=== PATIENT | female | born 1990 | race Caucasian/White ===

== ENCOUNTER 2022-08-18 10:03 | Emergency (ER) | payer OTHER, SELFPAY ==
[2022-08-18 10:10] VITALS: BP 119/71; PULSE 85; RESP 14; TEMP 37; O2SAT 100
--- NOTE | 2022-08-18 10:13 | ED.WOUNDLAC ---
HPI - Wound/Laceration General Chief Complaint: Wound/Laceration Stated Complaint: Laceration to Left Thigh Source: patient and RN notes reviewed History of Present Illness HPI narrative: 32 yo F presents to urgent care with complaints of a laceration to her left thigh. 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 Pt denies any other complaints. Pt is unknown when her last Tdap occurred. Related Data Allergies Allergy/AdvReac Type Severity Reaction Status Date / Time No Known Drug Allergies Allergy Unknown Verified 05/07/21 15:48 Review of Systems Review of Systems: CONSTITUTIONAL: Denies fever, chills, or sweats. EYES: Denies visual changes, redness, or discharge. ENT: Denies otalgia and sore throat CARDIOVASCULAR: Denies chest pain, palpitations, or edema. RESPIRATORY: Denies cough or dyspnea. GASTROINTESTINAL: Denies abdominal pain, nausea, vomiting, or diarrhea. GENITOURINARY: Denies dysuria or hematuria. SKIN: Laceration MUSCULOSKELETAL: Denies back pain, joint pain, or myalgia. NEUROLOGIC: Denies headache, numbness, or weakness. PMFSH Comments At the time of my signature, I reviewed and agree with the nursing past medical, surgical, social, and family history. There is no relevant family history pertinent to the patient complaint. Exam Narrative: GENERAL: This is a well-nourished, well-developed patient, in no apparent distress. HEAD: normocephalic, atraumatic. EYES: PERRL. Sclera clear/white. Vision is grossly intact. EARS: External ears normal, auditory canals clear and without drainage, TMs normal without perforation. Hearing grossly intact. NOSE: External nose normal with no obvious nasal discharge, nares without redness, no rhinorrhea. THROAT: Mucous membranes moist, posterior pharynx clear. NECK: Neck supple, non-tender without lymphadenopathy, masses or thyromegaly. CARDIOVASCULAR: Regular rate and rhythm without murmurs, gallops, or rubs. RESPIRATORY: Clear to auscultation. Breath sounds equal bilaterally. No wheezes, rales, or rhonchi. GASTROINTESTINAL: Abdomen soft, non-tender, nondistended. Bowel sounds are active. No hepato-splenomegaly, or palpable masses. No guarding. SKIN: 1 cm laceration to left anterior thigh, no active bleeding. NEURO: awake, alert, and oriented to person, place and time. There were no obvious focal neurologic abnormalities. EXTREMITIES: No clubbing, cyanosis, or edema. No joint tenderness, effusion, BACK: Nontender without deformity or crepitance. No flank tenderness. Course Course Level of Care: Express Care Visit Vital Signs Vital signs: Vital Signs Temperature 98.6 F 08/18/22 10:10 Pulse Rate 85 08/18/22 10:10 Respiratory Rate 14 08/18/22 10:10 Blood Pressure 119/71 08/18/22 10:10 Pulse Oximetry 100 08/18/22 10:10 Oxygen Delivery Room Air 08/18/22 10:10 Temperature 98.6 F 08/18/22 10:10 Pulse Rate 85 08/18/22 10:10 Respiratory Rate 14 08/18/22 10:10 Blood Pressure 119/71 08/18/22 10:10 Pulse Oximetry 100 08/18/22 10:10 Oxygen Delivery Room Air 08/18/22 10:10 Reviewed. Procedures Laceration Laceration 1: Date: 08/18/22 Time: 10:20 Site: lower extremity (anterior thigh) Side (If applicable): left Size (cm): 1 Description: clean Depth: simple, single layer Local Anesthetic: lidocaine 1% Amount of anesthesia used (mL): 2 Pre-repair: wound explored and irrigated ====== Skin Level ====== Skin layer closed with: nylon Size (cm): 4-0 Number of sutures: 2 Technique: simple, interrupted ====== Subcutaneous Layer ====== ====== Muscle Layer ====== ====== Tendon Layer ====== Dressing: Pt tolerated the procedure well. Approximately 5 minutes after procedure, pt became sweaty, clammy, and nauseated. Pt was then placed in Trendelenburg and began to feel b
[2022-08-18] MEDS: TETANUS,DIPHTHERIA,AC PERTUSSIS ADULT (0.5 ML) BOOSTRIX IM (10:38)
== END 2022-08-18 10:45 | disposition home or self-care (01) ==
PROVIDERS: Emergency Provider Nurse Practitioner Family
DX: S71.112A Laceration without foreign body, left thigh, initial encounter (principal); W26.0XXA Contact with knife, initial encounter; Y99.0 Civilian activity done for income or pay; Z23 Encounter for immunization
CPT/HCPCS: 12001; 90471; 90715; 99202; G0463

== ENCOUNTER 2022-08-27 15:48 | Emergency (ER) | payer OTHER, SELFPAY ==
[2022-08-27 15:55] VITALS: BP 113/68; PULSE 79; RESP 18; TEMP 36.8; O2SAT 100
--- NOTE | 2022-08-27 16:03 | ED.WOUNDLAC ---
HPI - Wound/Laceration General Chief Complaint: Wound/Laceration Stated Complaint: Suture Removal Time Seen by Provider: 08/27/22 16:03 Source: patient and RN notes reviewed History of Present Illness HPI narrative: Patient is a 32-year-old female who presents to urgent care with requesting removal of sutures. Patient was seen on the at our facility for laceration to the left upper thigh. Patient cut it on a knife at work. Patient states that the wound has not shown any signs or symptoms of infection. No other acute complaints. States 2 sutures were placed. Patient aware of the plan of care. Some parts of this dictation were generated by voice recognition software and may contain typographical and/or grammatical inaccuracies. Related Data Home Medications Medication Instructions Recorded Confirmed No Home Medications 08/27/22 08/27/22 Allergies Allergy/AdvReac Type Severity Reaction Status Date / Time No Known Allergies Allergy Verified 08/27/22 16:04 Review of Systems Review of Systems: CONSTITUTIONAL: Denies fever, chills, or sweats. EYES: Denies visual changes, redness, or discharge. ENT: Denies rhinorrhea, congestion, sore throat, or otalgia. CARDIOVASCULAR: Denies chest pain, palpitations, or edema. RESPIRATORY: Denies cough or dyspnea. GASTROINTESTINAL: Denies abdominal pain, nausea, vomiting, or diarrhea. GENITOURINARY: Denies dysuria or hematuria. SKIN: Reports of a laceration to the left upper thigh MUSCULOSKELETAL: Denies back pain, joint pain, or myalgia. NEUROLOGIC: Denies headache, numbness, or weakness. All other systems reviewed are negative, except as documented in HPI. PMFSH Comments At the time of my signature, I reviewed and agree with the nursing past medical, surgical, social, and family history. There is no relevant family history pertinent to the patient complaint. Exam Narrative: GENERAL: This is a well-nourished, well-developed patient, in no apparent distress. HEAD: normocephalic, atraumatic. EYES: PERRL. Sclera clear/white. Vision is grossly intact. EARS: External ears normal NOSE: External nose normal with no obvious nasal discharge, nares without redness, no rhinorrhea. THROAT: Mucous membranes moist NECK: Neck supple SKIN: Approximated 1 cm sutured laceration to the upper left thigh, 2 sutures noted. Warm, intact with no suspicious lesions or rash, good texture and turgor. NEURO: awake, alert, and oriented to person, place and time. There were no obvious focal neurologic abnormalities. EXTREMITIES: No clubbing, cyanosis, or edema. Course Course Level of Care: Express Care Visit Vital Signs Vital signs: Vital Signs Temperature 98.3 F 08/27/22 15:55 Pulse Rate 79 08/27/22 15:55 Respiratory Rate 18 08/27/22 15:55 Blood Pressure 113/68 08/27/22 15:55 Pulse Oximetry 100 08/27/22 15:55 Oxygen Delivery Room Air 08/27/22 15:55 Temperature 98.3 F 08/27/22 16:04 Pulse Rate 79 08/27/22 16:04 Respiratory Rate 18 08/27/22 16:04 Blood Pressure 113/68 08/27/22 16:04 Pulse Oximetry 100 08/27/22 16:04 Oxygen Delivery Room Air 08/27/22 16:04 Reviewed Procedures Other Procedure Procedure 1: Other Procedure: 1 cm left upper thigh laceration approximated with 2 sutures. Cleansed with alcohol and removed by provider. No complications. Wound approximated. Neosporin and bandage applied. MDM - Wound/Laceration MDM Narrative Medical decision making narrative: Advised patient to keep the wound clean with plain Dial soap and water. Wound is approximated and you should not have any issues with infection. May keep it covered with the use of Neosporin. Follow-up with your PCP within 2-5 days or for worsening symptoms or failure to improve. Differential Diagnosis Differential diagnosis: Likely laceration, abscess, abrasion and avulsion of skin Critical Care Time Critical Care Time Critical Care Time: No Discharge Plan Disc
[2022-08-27 16:04] VITALS: BP 113/68; PULSE 79; RESP 18; TEMP 36.8; O2SAT 100
== END 2022-08-27 16:15 | disposition home or self-care (01) ==
PROVIDERS: Emergency Provider Nurse Practitioner Family
DX: Z48.02 Encounter for removal of sutures (principal)
CPT/HCPCS: 99211; G0463

== ENCOUNTER 2024-12-20 15:56 | Emergency (ER) | payer OTHER, SELFPAY ==
[2024-12-20 16:05] VITALS: BP 142/70; PULSE 78; RESP 18; TEMP 36.7; O2SAT 100
--- NOTE | 2024-12-20 16:05 | ED.SKABFB ---
HPI - Skin/Abscess/Foreign Bdy General Chief complaint: Skin/Abscess/Foreign Body Stated complaint: rash on body Source: patient Mode of arrival: ambulatory Limitations: no limitations History of Present Illness HPI narrative: Patient is 34-year-old female that presents to the clinic with complaints of an itchy rash to her upper extremities x 1 day and a rash and edema to bilateral lower extremities x 2 days. She states that she took Benadryl over the counter, but has not had any relief. Denies history of congestive heart failure or DVTs. She is currently not on control. Denies any new products, shortness of breath, chest pain, diarrhea, vomiting, nausea, or fevers. Related Data Allergies Allergy/AdvReac Type Severity Reaction Status Date / Time No Known Allergies Allergy Verified 12/20/24 16:11 Review of Systems Review of Systems: CONSTITUTIONAL: Denies body aches, fever, chills, or sweats. EYES: Denies visual changes, redness, or discharge. ENT: Denies rhinorrhea, congestion CARDIOVASCULAR: Denies chest pain, palpitations, or edema. RESPIRATORY: Denies cough or dyspnea. GASTROINTESTINAL: Denies abdominal pain, nausea, vomiting, or diarrhea. SKIN: ?Reports an itchy rash to her bilateral lower extremities and upper extremities. MUSCULOSKELETAL: Denies back pain, joint pain, or myalgia. NEUROLOGIC: Denies headache, numbness, tingling, or weakness. All systems reviewed & are unremarkable except as noted in HPI and below PMFSH Comments At time of signature, I have reviewed and agree with nursing past medical, surgical, social and family history unless otherwise noted. Please see nursing chart for further information. There is no relevant family history pertinent to the presenting complaint. Exam Narrative: GENERAL: Well-appearing HEAD: Normocephalic, atraumatic. EYES: ?conjunctivae clear, and EOMI. ENT: Mucous membranes moist. Oropharynx without edema, erythema or lesions. NECK: Supple. No lymphadenopathy CHEST: Clear to auscultation. HEART: Regular rate and rhythm. SKIN: Warm, dry. ?Raised, erythemic papules c/w insect bites to bilateral upper extremities. Erythemic, flat rash to bilateral medial lower extremities with 2+ non-pitting edema; not painful. NEURO: ?Alert and oriented x3.? Course Course Level of Care: Express Care Visit Vital Signs Vital signs: Reviewed MDM - Skin/Abscess/Foreign Bdy MDM Narrative Medical decision making narrative: Discussed physical exam findings. Triamcinolone prescription given for upper extremities. Advised supportive measures and signs/symptoms to go to the ER. Discussed with patient that bilateral lower extremities may be the start of vasculitis or cellulitis. She is aware of the benefits and risks. Patient would not like to go to ER at this time. She agrees that if symptoms are to get worse, she will go to ER immediately. Differential Diagnosis Differential diagnosis: Likely cellulitis, insect bites, contact dermatitis and other (vasculitis to lower extremities. ) Critical Care Time Critical Care Time Critical Care Time: No Discharge Plan Discharge Clinical Impression: Insect bites, Rash Patient Disposition: Home Condition: Stable Instructions: Insect Bite or Sting (ED) Additional Instructions: The most important part of your care is follow up with Primary care provider. If the rash on your lower legs persist or get worse please go to ER immediately. Use triamcinolone cream was prescribed. Take Claritin, Zyrtec, or Susan daily for the next 7 days Avoid hot showers, Take cool showers. Wash the area with gentle soap and water only. Use skin cream as prescribed to reduce itchiness Avoid scratching when possible to prevent worsening of the condition and disruption of the skin that could lead to bacterial infection To relieve itching, place a cool washcloth or some ice over the area that itches, rather than scratching Follow up with primary care provider or seek ER if you have trouble breathing, become hoarse, or start wheezing, develop belly cramps, vomiting or feel dizzy. Patient Language: Maltese Prescriptions: New triamcinolone acetonide 0.1 % cream 1 applic topical BID Qty: 30 0RF Follow-up/Referrals: PHYSICIAN,CATSHOVEL DRIVER [Primary Care Provider] - Stand Alone Forms: Work/School Release IP Time of Disposition: 16:20
== END 2024-12-20 16:23 | disposition home or self-care (01) ==
DX: S40.862A Insect bite (nonvenomous) of left upper arm, initial encounter (principal); S40.861A Insect bite (nonvenomous) of right upper arm, initial encounter; W57.XXXA Bitten or stung by nonvenomous insect and other nonvenomous arthropods, initial encounter; R21 Rash and other nonspecific skin eruption
CPT/HCPCS: 99213; G0463

== ENCOUNTER 2025-06-13 16:15 | Emergency (ER) | payer OTHER, SELFPAY ==
[2025-06-13 16:26] VITALS: BP 109/71; PULSE 75; RESP 16; TEMP 36.6; O2SAT 100
--- NOTE | 2025-06-13 17:28 | ED.SKABFB ---
HPI - Skin/Abscess/Foreign Bdy General Chief complaint: Skin/Abscess/Foreign Body Stated complaint: Rash Time Seen by Provider: 06/13/25 17:15 Source: patient, RN notes reviewed and old records reviewed Mode of arrival: ambulatory Limitations: no limitations History of Present Illness HPI narrative: 34 year old female who presents to [facility] with complaints of rash to lower extremities.1 lesion on the right leg and 5 lesions on left anterior leg which are itchy. Patient has marked areas around lesions with are red flat with no pustule or vesicle formation reports lesios noted 2 days ago. Ptient reports no new skin care products, lotions, foods, medications, or laundry products is unaware of being bit by any insect.Patient reorts no fevers chills or sweats. MD complaint: rash Onset (ago): day(s) (2) Tetanus up to date: yes Location: LLE and RLE Severity: moderate Quality: pruritic Treatments prior to arrival: other (Calamine lotion) Related Data Allergies Allergy/AdvReac Type Severity Reaction Status Date / Time No Known Allergies Allergy Verified 06/13/25 16:30 Review of Systems Review of Systems: CONSTITUTIONAL: Denies fever, chills, or sweats. CARDIOVASCULAR: Denies chest pain, palpitations, or edema. RESPIRATORY: Denies cough or dyspnea. SKIN: Reports lesions on the lower anterior aspects of lower legs for 2 days 1 lesion red flat circular to right leg, and 5 red flat circular to left leg are itchy no induration or fluctuation no vesicle or pustules no drainage. MUSCULOSKELETAL: Denies joint pain or myalgia. NEUROLOGIC: Denies headache, numbness, or weakness. All systems reviewed & are unremarkable except as noted in HPI and below PMFSH Surgical History Surgical History (Updated 06/15/25 @ 21:56 by Danielle Colunga APRN) H/O LEEP History of partial hysterectomy Social History Social History Smoking status: Current every day smoker Tobacco type: e-cigarettes/vaping Alcohol intake: current Alcohol use details: social Substance use type: does not use Living arrangements: with family Gender identity (if verbalized by the patient): Female Comments At time of signature, agree with nursing past medical, surgical, social and family history. There is no relevant family history pertinent to the presenting complaint Exam Narrative: GENERAL: Well-appearing, well-nourished, and in no acute distress.afebrile HEAD: Normocephalic, atraumatic. EYES: PERRLA, conjunctivae clear, and EOMI. ENT: Mucous membranes moist. Oropharynx without edema, erythema or lesions. NECK: Supple. No lymphadenopathy CHEST: Clear to auscultation. No respiratory distress.SAO2 100% on room air HEART: Regular rate and rhythm. SKIN: Warm, dry.?red circular lesions noted to anterior aspect of legs with 1 lesion to righ and 5 noted to right with no induration or fluctuation, no pustules or any vesicles or any drainage from areas patient has marked around areas with no increase in size are itching has been applying Calamine lotion NEURO:? Alert and oriented x3. PSYCH: Normal mood and affect Course Course Level of Care: Express Care Visit Vital Signs Vital signs: Vital Signs Temperature 36.6 C 06/13/25 16:26 Pulse Rate 75 06/13/25 16:26 Respiratory Rate 16 06/13/25 16:26 Blood Pressure 109/71 06/13/25 16:26 Pulse Oximetry 100 06/13/25 16:26 Oxygen Delivery Room Air 06/13/25 16:26 Temperature 36.6 C 06/13/25 16:26 Pulse Rate 75 06/13/25 16:26 Respiratory Rate 16 06/13/25 16:26 Blood Pressure 109/71 06/13/25 16:26 Pulse Oximetry 100 06/13/25 16:26 Oxygen Delivery Room Air 06/13/25 16:26 reviewed MDM MDM Narrative Medical decision making narrative: Patient presents with lesions to the anterior aspect of lower extremities with 1 on right leg and 5 to left leg no pustular formation or any vesicles are red flat and itchy. Reports no new possible allergens or any known insect bites,no drainage noted. Patient prescribed prednisone, triamcinolone ointment, and instructed to take zyrtec and pepcid daily for 10 days. Patient is appropriate for outpatient care and follow up. reasons to seek care in ED reviewed with patient with understanding voiced. Differential Diagnosis Differential Diagnosis: Differential diagnostic considerations for skin/abscess/foreign body issues include abscess of skin or subcutaneous tissue, viral exanthem, dermatophytosis, urticaria, herpes zoster, allergic reaction to drug, cellulitis, eczema, insect bites, impetigo, contact dermatitis, vasculitis. Critical Care Time Critical Care Time Critical Care Time: No Discharge Plan Discharge Clinical Impression: Contact dermatitis Qualifiers: Contact dermatitis type: unspecified Contact dermatitis trigger: unspecified trigger Qualified Code(s): L25.9 - Unspecified contact dermatitis, unspecified cause Patient Disposition: Home Condition: Stable Instructions: Contact Dermatitis (ED) Additional Instructions: wash rash areas with liquid Dial soap and apply triamcinolone ointment twice daily watch for any infection- increased-redness, swelling, drainage Tylenol or ibuprofen for any fever pain follow up with PCP in 7-10 days for a wound check recheck if develop fever, chills, increasing symptom Go to the ER if your symptoms become worse of if ANY new symptoms develop prednisone take as prescribed complete all doses If your symptoms persist, change or worsen significantly before you can contact your personal physician then please, without delay, go to the emergency department for further evaluation. Follow-up with PCP in 7-10 days or sooner if needed Zyrtec 10 mg daily for 10 days Pepcid 20 mg daily for 10 days Patient Language: Bruneian Prescriptions: New prednisone 20 mg tablet 20 mg PO BID 5 Days Qty: 10 0RF triamcinolone acetonide 0.1 % ointment 1 applic topical BID Qty: 80 0RF Rx Instructions: apply to rash twice daily famotidine [Pepcid] 20 mg tablet 20 mg PO DAILY Qty: 10 0RF Follow-up/Referrals: UNKNOWN,DOCTOR [Primary Care Provider] Time of Disposition: 17:40 Quality Mona Coma Scale Eyes: Open Verbal: Oriented and Alert Motor: Follows Commands Abhay Coma Total Score: 15
--- OUTSIDE RECORDS SUMMARY | 2025-06-13 18:04 | XMS_ITS | Clinical Summary ---
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 9 Active HYDROcodone-ac etaminophen (NORCO) 5-325 mg per tabletIndicati ons:Pain Take 1 tablet by mouth every 4 (four) hours as needed for pain. 10 tablet 9 Active naproxen (NAPROSYN) 500 mg tabletIndicati ons:Pleurisy Take 1 tablet (500 mg total) by mouth 2 (two) times a day with meals P.r.n. pain. Collaborating physician Jon Astudillo MD 30 tablet 4 Active traMADoL (ULTRAM) 50 mg tabletIndicati ons:Pleurisy Take 1 tablet (50 mg total) by mouth every 6 (six) hours P.r.n. pain not relieved by naproxen alone. Take with food. Collaborating physician Jon Astudillo MD 20 tablet 4 Active Active Problems Problem Noted Date Diagnosed Date Pleurisy 08/13/2023 Surgical History Surgery Date Site/Laterality Comments HYSTERECTOMY Medical History Medical History Date Comments Cancer (HCC) Social History Tobacco Use Types Packs/Day Years Used Date Smoking Tobacco: Every Day Cigarettes 0.5 20 Smokeless Tobacco: Never Tobacco Cessation:Ready to Q uit: Not Asked; Counseling Given: Not Answered Personal Safety Answer Date Recorded Have you ever been in or are you currently in a harmful physical or emotional relationship or is someone making you feel afraid or unsafe? 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 Gender Identity Not on file Sexual Orientation Not on file Last Filed Vital Signs Vital Sign Reading Time Taken Comments Blood Pressure 118/86 08/13/2023 5:45 PM CASEY SAW OPERATOR Pulse 80 08/13/2023 7:24 PM CASEY SAW OPERATOR Temperature 36.9 C (98.4 F) 08/13/2023 2:44 PM CASEY SAW OPERATOR Respiratory Rate 16 08/13/2023 7:24 PM CASEY SAW OPERATOR Oxygen Saturation 100% 08/13/2023 7:24 PM CASEY SAW OPERATOR Inhaled Oxygen Concentration - - Weight 56.7 kg (125 lb) 08/13/2023 2:44 PM CASEY SAW OPERATOR Height 175.3 cm (5' 9) 08/13/2023 2:44 PM CASEY SAW OPERATOR Body Mass Index 18.46 08/13/2023 2:44 PM CASEY SAW OPERATOR Plan of Treatment Health Maintenance Due Date Last Done Comments Depression Screening 1988 Hepatitis C Screening 1988 DTaP/Tdap/Td Vaccine (1 - Tdap) 1999 Varicella Vaccines (1 of 2 - 13+ 2-dose series) 2001 Hepatitis B Screening 2006 Regular Well Visit/Exam 18-64 2006 Pneumococcal vaccine <65 (1 of 2 - PCV) 2007 HPV Vaccines (1 - 3-dose SCDM series) 2015 Influenza Vaccine (#1) 2025 Insurance [facility] CHOICE PLUS Advance Directives For more information, please contact: [phone] * Full Code (Latest Code Status on File) Date Activated Date Inactivated Comments 07/24/2018 1:28 AM 07/25/2018 6:19 PM Care Teams Button Tufting Machine Operator Relationship Specialty Start Date End Date No, Physician PCP - General 08/13/23
--- OUTSIDE RECORDS SUMMARY | 2025-06-13 18:04 | XMS_ITS | Clinical Summary ---
Author Organization [facility] Address [address] [place] [address] Phone Care Team Providers Care Service Station Helper Name Role Phone Provider, None Primary Care Provider Unavailabl e Allergies No known active allergies Medications famotidine (PEPCID) 20 MG Tablet Take 1 Tab by mouth 2 times daily. 20 Tab 01/16/2018 Active ondansetron (ZOFRAN ODT) 4 MG TABLET DISPERSIBLE Take 1 Tab by mouth every 8 hours as needed for Nausea - 2nd line. 10 Tab 01/16/2018 Active dicyclomine (BENTYL) 20 MG Tablet Take 1 Tab by mouth every 6 hours. 30 Tab 01/16/2018 Active Social History Tobacco Use Types Packs/Day Years Used Date Smoking Tobacco: Every Day Cigarettes Smokeless Tobacco: Never Alcohol Use Standard Drinks/Week Comments No 0 (1 standard drink = 0.6 oz pur e alcohol) Comments No Sex and Gender Information Value Date Recorded Sex Assigned at Not on file Legal Sex Female 9:19 PM CDT Gender Identity Not on file Sexual Orientation Not on file Last Filed Vital Signs Vital Sign Reading Time Taken Comments Blood Pressure 121/59 01/16/2018 4:06 AM CDT Pulse 74 01/16/2018 4:06 AM CDT Temperature 36.6 C (97.9 F) 01/16/2018 4:06 AM CDT Respiratory Rate 14 01/16/2018 4:06 AM CDT Oxygen Saturation 100% 01/16/2018 4:06 AM CDT Inhaled Oxygen Concentration - - Weight 54.4 kg (120 lb) 01/16/2018 4:06 AM CDT Height 175.3 cm (5' 9) 01/16/2018 4:06 AM CDT Body Mass Index 17.72 01/16/2018 4:06 AM CDT Plan of Treatment Not on file Care Teams Service Station Helper Relationship Specialty Start Date End Date Provider, None [place] PCP - General 01/16/18
--- OUTSIDE RECORDS SUMMARY | 2025-06-13 18:04 | XMS_ITS | Clinical Summary ---
Author Organization [facility] Address [address] [place] [address] Care Team Providers Care Microsoft Architect Name Role Phone Unavailable Primary Care Provider Unavailabl e Source Comments [facility],non-owned Affiliates and Associated Physician Practices is amultiple site organization consisting of ambulatory clinics and hospital sitesin [place], [place], [place] and [place]. This disclosure is being madepursuant to the Care Everywhere program and may not contain all information available regarding this patient. Last updated 18.[facility] [employer] Allergies No known active allergies Medications * Be aware that medications may not be up to date on this document. Alwaysverify current medications with the patient. Straughn-3 Fatty Acids (FISH OIL PO) Take 1,000 mg by mouth once daily Active Active Problems Problem Noted Date Diagnosed Date Breast pain 03/09/2019 S/P laparoscopic hysterectomy 05/17/2018 ABRAHAM III (cervical intraepith elial neoplasia grade III) with severe dysplasia 04/08/2018 Overview (06/16/2018): PAP smear and HPV Cotesting at 12 and 24 months. If both negative routine screening for 20 years. Resolved Problems Problem Noted Date Diagnosed Date Resolved Date Pelvic mass 08/17/2018 07/28/2019 S/P LEEP (loop electrosurgic al excision procedure) 04/08/2018 06/15/2018 Endometriosis 04/08/2018 06/15/2018 Chronic pelvic pain in female 04/08/2018 06/15/2018 Dyspareunia in female 04/08/20182017 Surgery follow-up examination 05/07/2017 06/15/2018 Encounters Date Type Department Care Team Description 05/12/2025 Results Follow-Up [facility] PATENT PROSECUTION PARALEGAL [address] [place] [address], [address] [address] Pinky Lubin MD 05/01/2025 2:30 PM COMMERCIAL CARPENTER OBGYN RADIOLOGY [facility] PATENT PROSECUTION PARALEGAL [address] [place] [address], [address] [phone] Pelvic pain 04/28/2025 Results Follow-Up [facility] PATENT PROSECUTION PARALEGAL [address] [place] [address], [address] [address] Genet Peguero 04/24/2025 2:45 PM CDT Office Visit [facility] PATENT PROSECUTION PARALEGAL [address] [place] [address], [address] [address] Pinky Lubin MD Well woman exam with routine gynecological exam (Primary Dx); Pelvic pain from Last 3 Months Family History * Patient is adopted Relation Name Status Comments Brother Alive Father Mother Other Sister 1 Alive Sister 2 Alive Social History Tobacco Use Types Packs/Day Years Used Date Smoking Tobacco: Former Cigarettes 0.1 13 Smokeless Tobacco: Never Alcohol Use Standard Drinks/Week Comments Yes 0 (1 standard drink = 0.6 oz pur e alcohol) rare PHQ-2 Answer Date Recorded Patient Health Questionnaire-2 Score 4 04/17/2025 Comments No Sex and Gender Information Value Date Recorded Sex Assigned at Not on file Legal Sex Female 7:48 AM COMMERCIAL CARPENTER Gender Identity Not on file Sexual Orientation Not on file Last Filed Vital Signs Vital Sign Reading Time Taken Comments Blood Pressure 134/80 04/24/2025 2:53 PM CDT Pulse 82 11/27/2020 3:54 PM CDT Temperature 36.3 C (97.3 F) 12/10/2020 11:56 AM CDT Respiratory Rate 16 11/27/2020 3:54 PM CDT Oxygen Saturation 99% 11/27/2020 3:54 PM CDT Inhaled Oxygen Concentration - - Weight 67.6 kg (149 lb) 04/24/2025 2:53 PM CDT Height 175.3 cm (5' 9) 04/24/2025 2:53 PM CDT Body Mass Index 22 04/24/2025 2:53 PM CDT Plan of Treatment Upcoming Encounters Date Type Department Care Team (Late st Contact Info) Description 07/04/2025 3:00 PM COMMERCIAL CARPENTER Office Visit [facility] - PATENT PROSECUTION PARALEGAL [address], [facility] [address] [place] [address] Dannielle Smith MD [address] [place] [address] Health Maintenance Due Date Last Done Comments HIV SCREENING 2003 HEPATITIS C SCREENING 07/26/2006 DTAP/TDAP/TD VACCINES (1 - Tdap) 2007 HEPATITIS B VACCINE (1 of 3 - 19+ 3-dose series) 2007 HPV VACCINE (1 - 3-dose SCDM series) 2015 DEPRESSION SCREENING 06/29/2024 06/09/2023 COVID-19 VACCINE (1 - 2024-2 6 season) 2025 INFLUENZA VACCINE (#1) 2025 ZOSTER VACCINE (1 of 2) 2038 HIB VACCINE Aged Out No longer eligi ble based on patient's age to complete this topic MENINGOCOCCAL (Group B) VACC INE SHARED DECISION-MAKING Aged Out No longer eligibl e based on patient's age to complete this topic MENINGOCOCCAL GROUPS A/C/Y/W VACCINE Aged Out No longer eligible b ased on patient's age to complete this topic PNEUMOCOCCAL VACCINE Aged Out No long er eligible based on patient's age to complete this topic Medical Devices Implanted Type Area Retail Support Manager Device Identifier Shelf Expiration Date Model / Serial / Lot Graft Tissue Amniofix Purion Amnio Membr Implanted:Qty: 1 on 11/27/2020 by Pedro Pablo Pennington MD at [facility] N/A: Pelvis [employer] 08/27/2025 [facility]-[id number] / / [id number] Procedures Procedure Name Priority Date/Time Associated Diagnosis Comments NON-OB PELVIC SONOGRAM Routine 05/01/2025 2:30 PM COMMERCIAL CARPENTER Pelvic pain PAP IG LB +HPV APTIMA REFLEX 16,18/45 FOR HR POS Routine 04/24/2025 3:21 PM CDT Well woman exam with routine gynecological exam from Last 3 Months Results * Non-OB Pelvic Sonogram (05/01/2025 2:30 PM COMMERCIAL CARPENTER) Linked Results Indication ======== Pelvic pain Method ====== Transvaginal ultrasound Uterus ====== Position: surgically absent Right Ovary ========= Visualized. Size 34 mm x 36 mm x 32 mm. Vol 20.8 cm Cyst(s) Size 16.7 mm x 17.5 mm x 16.3 mm. Mean 16.8 mm. Vol 2.494 cm . Hypoechoic solid Left Ovary ======== surgically absent Cul de Sac ========= Visualized. No free fluid visualized Impression ========= Right ovary with hypoechoic solid mass, ?endometrioma Coding ====== Diagnoses R10.2: Pelvic and perineal pain Procedures 32203: US Transvaginal Non OB [facility] [employer] PACS Anatomical Region Laterality Modality Other 05/01/2025 2:30 PM COMMERCIAL CARPENTER us Pinky Lubin MD [facility] ORDERABLES Edited Result - Final * PAP IG LB +HPV APTIMA REFLEX 16,18/45 FOR HR POS (04/24/2025 3:21 PM CDT) Diagnosis Comment [facility] ACCOUNT BILL Comment:NEGATIVE FOR INTRAEP ITHELIAL LESION OR MALIGNANCY. Specimen Adequacy Comment [facility] ACCOUNT BILL Comment: Satisfactory for evaluation. No endocervical cells are present. This is consistent with a history of hysterectomy. Clinician Provided ICD10 Comment [facility] ACCOUNT BILL Comment:Z01.419 Performed by Comment [facility] ACCOUNT BILL Comment:Nia Tovar, Cytolog ist (ASCP) Comment . [facility] ACCOUNT BILL Note Comment [facility] ACCOUNT BILL Comment: The Pap smear is a screening test designed to aid in the detection of premalignant and malignant conditions of the uterine cervix. It is not a diagnostic procedure and should not be used as the sole means of detecting cervical cancer. Both false-positive and false-negative reports do occur. IGLBP CPT Code Automation Comment [facility] ACCOUNT BILL Comment: This liquid based ThinPrep(R) pap test was interpreted using the Apica(R) Genius(TM) Cervical Algorithm whole slide imaging system. Human papillomavirus Aptima Negative Negative [facility] ACCOUNT BILL Comment: This nucleic acid amplification test detects fourteen high-risk HPV types (16,18,31,33,35,39,45,51,52,56,58,59,66,68) without differentiation. ENTIRE VAGINA / Unknown 04/24/2025 3:21 PM CDT 04/24/2025 Comment:Vaginal Release to pa Narrative [facility] ACCOUNT BILL - 04/27/2025 3:10 PM CDT Performed at: - [address] [id number] Supervisor Coffee: Jasmin Lopez MD, Phone: [phone] Performed at: 02 - [facility] [id number] Supervisor Coffee: Jamsin Lopez MD, Phone: [phone] Specimen Comment: [id number] Specimen Comment: LMP / Prev Treat...Hyst Specimen Comment: No. of containers..01 ThinPrep Vial us Pinky Lubin MD LAB - PATHOLOGY/CYTOLOGY ORDERAB LES Final Result [facility] ACCOUNT BILL [address] [place] [address] from Last 3 Months Insurance [facility] Advance Directives * Full Code (Latest Code Status on File) Date Activated Date Inactivated Comments 08/17/2018 2:14 PM 08/18/2018 1:11 PM * Full Code Date Activated Date Inactivated Comments 04/23/2018 3:39 PM 04/24/2018 4:05 PM * Full Code Date Activated Date Inactivated Comments 03/10/2018 11:48 AM 03/10/2018 5:06 PM
--- OUTSIDE RECORDS SUMMARY | 2025-06-13 18:04 | XMS_ITS | Clinical Summary ---
Author Organization [facility] Address [address] [place] [address] Care Team Providers Care Display Director Name Role Phone Unavailable Primary Care Provider Unavailabl e Social History Tobacco Use Types Packs/Day Years Used Date Smoking Tobacco: Never Assessed Comments Unknown Sex and Gender Information Value Date Recorded Sex Assigned at Not on file Legal Sex Female 7:05 PM EST Gender Identity Not on file Sexual Orientation Not on file Plan of Treatment Not on file Medical Devices Not on file
--- OUTSIDE RECORDS SUMMARY | 2025-06-13 18:04 | XMS_ITS | Encounter Summary ---
Author Organization [facility] Address [address] [place] [address] Care Team Providers Care Greenhouse Florist Name Role Phone Unavailable Primary Care Provider Unavailabl e Reason for Visit * Reason Onset Date Comments Surgery Scheduling 09/12/2020 Order 09/12/2020 Encounter Details Date Type Department Care Team (Late st Contact Info) Description 09/12/2020 Telephone [facility] [address] [place] [address] Pedro Pablo Pennington MD [address] [facility] [address] [place] [address] Surgery Scheduling; Order Social History Tobacco Use Types Packs/Day Years Used Date Smoking Tobacco: Every Day Cigarettes 0.5 13 Smokeless Tobacco: Never Alcohol Use Standard Drinks/Week Comments Yes 0 (1 standard drink = 0.6 oz pur e alcohol) rare Comments No Sex and Gender Information Value Date Recorded Sex Assigned at Not on file Legal Sex Female 7:48 AM MONEY ORDER CLERK Gender Identity Not on file Sexual Orientation Not on file documented as of this encounter Functional Status * Is person deaf or have serious hearing difficulty? Answer Date of Assessment Author No 08/03/2019 4:00 PM Chanel Mc RN * Is person blind or have serious difficulty seeing? Answer Date of Assessment Author No 08/03/2019 4:00 PM Chanel Mc RN * Does person have serious difficulty walking/climbing stairs? Answer Date of Assessment Author No 08/03/2019 4:00 PM Chanel Mc RN * Does person have difficulty dressing/bathing? Answer Date of Assessment Author No 08/03/2019 4:00 PM Chanel Mc RN * Does person have difficulty doing errands alone? Answer Date of Assessment Author No 08/03/2019 4:00 PM Chanel Mc RN documented as of this encounter Mental Status * Does person have difficulty concentrating/remembering/making decisions? Answer Entry Date Author No 08/03/2019 4:00 PM Chanel Mc RN documented in this encounter Miscellaneous Notes * Telephone Encounter - Ryann George - 09/12/2020 1:24 PM CDT Pt called in to schedule surgery and was informed that I don't have an scheduling order. Is surgerythe plan for this patient, if so can you place an order? documented in this encounter Plan of Treatment Upcoming Encounters Date Type Department Care Team (Late st Contact Info) Description 07/04/2025 3:00 PM MONEY ORDER CLERK Office Visit [facility] - SERVICE DELIVERY DIRECTOR [address] [place] [phone] Dannielle Smith MD [address] [place] [address] documented as of this encounter Visit Diagnoses Not on filedocumented in this encounter Additional Health Concerns Infection Onset Date Last Indicated Resolved Time COVID-19 Under Investigation 11/23/2020 11/23/2020 11/23/2020 7:54 PM CDT documented as of this encounter
--- OUTSIDE RECORDS SUMMARY | 2025-06-13 18:04 | XMS_ITS | Encounter Summary ---
Author Organization [facility] Address [address] [place] [address] Care Team Providers Care French Polisher Name Role Phone Unavailable Primary Care Provider Unavailabl e Reason for Visit * Reason Onset Date Comments Surgery Verification 11/12/2020 Returned Call 11/12/2020 Encounter Details Date Type Department Care Team (Late st Contact Info) Description 11/12/2020 Telephone [facility] [address] [place] [address] Pedro Pablo Pennington MD [address] [facility] [address] [place] [address] Surgery Verification; Returned Call Social History Tobacco Use Types Packs/Day Years Used Date Smoking Tobacco: Every Day Cigarettes 0.5 13 Smokeless Tobacco: Never Alcohol Use Standard Drinks/Week Comments Yes 0 (1 standard drink = 0.6 oz pur e alcohol) rare Comments No Sex and Gender Information Value Date Recorded Sex Assigned at Not on file Legal Sex Female 7:48 AM VISUAL BASIC .NET DEVELOPER Gender Identity Not on file Sexual Orientation [...] encounter Miscellaneous Notes * Telephone Encounter - Pedro Pablo Pennington MD - 11/14/2020 7:04 PM CDT I tried to do it and it says is already in place Text me if I need to do it * Telephone Encounter - Ryann George - 11/12/2020 12:32 PM CDT RTC to pt to confirm surgery date/time and informed that i'm awaiting the dr to place the surgery order to send it to her. Pt agreeable and denies further needs at this time. Dr Pennington can you place order? * Telephone Encounter - Cris Corral - 11/12/2020 12:14 PM CDT Pt called in with questions surrounding her upcoming procedure on 11/27. Pt states that she has no information regarding the surgery and would like to discuss the details. Pt can be reached at [phone]. documented in this encounter Plan of Treatment Upcoming Encounters Date Type Department Care Team (Late st Contact Info) Description 07/04/2025 3:00 PM VISUAL BASIC .NET DEVELOPER Office Visit [facility] - MIXER ATTENDANT [address] [place] [phone] Dannielle Smith MD [address] [place] [address] documented as of this encounter Visit Diagnoses Not on filedocumented in this encounter Additional Health Concerns Infection Onset Date Last Indicated Resolved Time COVID-19 Under Investigation 11/23/2020 11/23/2020 11/23/2020 7:54 PM CDT documented as of this encounter
--- OUTSIDE RECORDS SUMMARY | 2025-06-13 18:04 | XMS_ITS | Clinical Summary ---
Author Organization [facility] Address [address] [place] [address] Phone Care Team Providers Care Interior Design Coordinator Name Role Phone Unavailable Primary Care Provider Unavailabl e Allergies No known active allergies Medications buPROPion (WELLBUTRIN) 100 mg tablet Take 100 mg by mouth daily. Active ibuprofen (MOTRIN) 800 mg tablet Take 1 Tablet (800 mg) by mouth every 8 hours as needed for mild pain. 30 Tablet 3 01/13/2017 3:40 PM CDT 01/13/2017 Active docusate sodium (COLACE) 100 mg capsule Take 1 Capsule (100 mg) by mouth daily. 30 Capsule 01/13/2017 3:40 PM CDT 01/13/2017 Active oxyCODONE-aceta minophen (PERCOCET) 5-325 mg tablet Take 1 Tablet by mouth every 4 hours as needed for moderate pain. Max Daily Amount: 6 Tablets 30 Tablet 01/13/2017 3:40 PM CDT 01/13/2017 Active Social History Tobacco Use Types Packs/Day Years Used Date Smoking Tobacco: Every Day Cigarettes 0.5 13 Alcohol Use Standard Drinks/Week Comments Yes 0 (1 standard drink = 0.6 oz pur e alcohol) rarely Comments Unknown Sex and Gender Information Value Date Recorded Sex Assigned at Not on file Legal Sex Female 4:39 PM CDT Gender Identity Not on file Sexual Orientation Not on file Last Filed Vital Signs Vital Sign Reading Time Taken Comments Blood Pressure 110/65 01/13/2017 2:00 PM CDT Pulse 78 01/13/2017 2:00 PM CDT Temperature 36.1 C (97 F) 01/13/2017 2:00 PM CDT Respiratory Rate 16 01/13/2017 2:00 PM CDT Oxygen Saturation 99% 01/13/2017 2:00 PM CDT Inhaled Oxygen Concentration - - Weight 55.8 kg (123 lb) 01/13/2017 9:43 AM CDT Height 175.3 cm (5' 9) 01/09/2017 11:52 AM CDT Body Mass Index 18.16 01/09/2017 11:52 AM CDT Plan of Treatment Health Maintenance Due Date Last Done Comments DTAP/TDAP/TD VACCINES (1 - Tdap) 2007 HEPATITIS B VACCINES (1 of 3 - 19+ 3-dose series) 06/2007 HPV/Cotest (21-29) 2009 CERVICAL CANCER SCREENING 2018 HPV/Cotest (30-65) 2018 PAP SMEAR 2018 INFLUENZA VACCINE (#1) 2025 HPV VACCINES (No Doses Required) Completed Insurance [employer] BLUE ACCESS/TRUE BLUE PPO RX PAUL PLANS (INTERNAL) [employer] Internal Plans Advance Directives For more information, please contact: [phone] * Full Code (Latest Code Status on File) Date Activated Date Inactivated Comments 01/13/2017 11:41 AM 01/13/2017 4:16 PM * Full Code Date Activated Date Inactivated Comments 01/13/2017 9:44 AM 01/13/2017 11:41 AM
--- OUTSIDE RECORDS SUMMARY | 2025-06-13 18:05 | XMS_ITS | Encounter Summary ---
Author Organization [facility] Address [address] [place] [address] Care Team Providers Care Biomathematician Name Role Phone Unavailable Primary Care Provider Unavailabl e Encounter Details Date Type Department Care Team (Late st Contact Info) Description 04/28/2025 Results Follow-Up [facility] - CUSTOMIZER [address] [place] [address], [address] [place] [phone] Genet Peguero Social History Tobacco Use Types Packs/Day Years [...] on file Legal Sex Female 7:48 AM SLAB LIFTING ENGINEER Gender Identity Not on file Sexual Orientation Not on file documented as of this encounter Functional Status * Is person deaf or have serious hearing difficulty? Answer Date of Assessment Author No 08/03/2019 4:00 PM SLAB LIFTING ENGINEER Chanel Best RN * Is person blind or have [...] Chanel Mc RN documented in this encounter Plan of Treatment Upcoming Encounters Date Type Department Care Team (Late st Contact Info) Description 07/04/2025 3:00 PM SLAB LIFTING ENGINEER Office Visit [facility] - CUSTOMIZER [address], [facility] [address] [place] [address] Dannielle Smith MD [address] [place] [address] documented as of this encounter Visit Diagnoses Not on filedocumented in this encounter
== END 2025-06-13 17:44 | disposition home or self-care (01) ==
PROVIDERS: Emergency Provider Registered Nurse
DX: L25.9 Unspecified contact dermatitis, unspecified cause (principal); F17.290 Nicotine dependence, other tobacco product, uncomplicated; Z90.711 Acquired absence of uterus with remaining cervical stump
CPT/HCPCS: 99213; G0463